=== PATIENT | female | born 1945 | race Two or more races ===

== ENCOUNTER 2024-09-17 20:22 | Inpatient (IN) | payer OTHER ==
[~2024-09-17] VITALS: Ht 157.5 cm; Wt 71.2 kg
[2024-09-17] MEDS ORDERED: LACT1CAP57 PO (20:41)
[2024-09-17] MEDS ORDERED: ASPI81TA31 PO (20:41)
[2024-09-17] MEDS ORDERED: ACET325T53 PO (20:41)
[2024-09-17] MEDS ORDERED: ROSU5TAB PO (20:41)
[2024-09-17] MEDS ORDERED: CALC-494 PO (20:41)
[2024-09-17] MEDS ORDERED: BUSP5TAB3 PO (20:41)
[2024-09-17] MEDS ORDERED: DOCU100C36 PO (20:41)
[2024-09-17] MEDS ORDERED: ASCO500C18 PO (20:41)
[2024-09-17] MEDS ORDERED: FAMO20TA8 PO (20:41)
[2024-09-17] MEDS ORDERED: BUDE10.2 INH (20:41)
[2024-09-17] MEDS ORDERED: CHOL10005 PO (20:41)
[2024-09-17] MEDS ORDERED: TIOT4MIS2 IH (20:41)
[2024-09-17] MEDS ORDERED: ONDA4TAB11 PO (20:41)
[2024-09-17] MEDS ORDERED: BENZ5.1G (20:41)
[2024-09-17] MEDS ORDERED: ALBU8HFA4 PO (20:41)
[2024-09-17] MEDS ORDERED: CITA10TA9 PO (20:41)
[2024-09-17] MEDS ORDERED: NYST15PO4 TP (20:41)
[2024-09-17] MEDS ORDERED: MULT-1045 PO (20:41)
[2024-09-17] MEDS ORDERED: METH1ADH11 TP (20:41)
[2024-09-17] MEDS ORDERED: LORA10TA60 PO (20:41)
[2024-09-17 21:17] LABS: BASOPHILS % (AUTO) 0.6 % (0.0-2.0); EOSINOPHILS # (AUTO) 0.1 K/uL (0.0-0.7); EOSINOPHILS % (AUTO) 1.7 % (0.0-7.0); HEMATOCRIT 32.2 % (31.2-41.9); HEMOGLOBIN 10.7 g/dL (10.9-14.3); LYMPHOCYTES # (AUTO) 1.4 K/uL (0.8-4.8); LYMPHOCYTES % (AUTO) 24.7 % (20.5-51.5); MEAN CORPUSCULAR HEMOGLOBIN 32.2 uug (24.7-32.8); MEAN CORPUSCULAR HGB CONC 33 g/dL (32.3-35.6); MEAN CORPUSCULAR VOLUME 96.6 fL (75.5-95.3); MONOCYTES # (AUTO) 0.5 K/uL (0.1-1.30); NEUTROPHILS # (AUTO) 3.7 K/uL (1.8-8.9); PLATELET COUNT (AUTO) 129 K/uL (179-408); RED BLOOD CELL COUNT(AUTO) 3.33 MIL/uL (3.63-4.92); RED CELL DISTRIBUTION WIDTH 13.6 % (12.3-17.7); WHITE BLOOD COUNT (AUTO) 5.6 K/uL (3.8-11.8)
[2024-09-17 21:23] LABS: DIFFERENTIAL COMMENT 1
[2024-09-17 21:26] LABS: CALCIUM 8.8 mg/dL (8.5-10.1); CARBON DIOXIDE 34 mmol/L (21-32); CHLORIDE 99 mmol/L (98-107); CREATININE 0.7 mg/dL (0.6-1.3); GLUCOSE 106 mg/dL (74-106); POTASSIUM 4.1 mmol/L (3.5-5.1); SODIUM SERUM 138 mmol/L (136-145); UREA NITROGEN, BLOOD 15 mg/dL (7-18)
[2024-09-17 21:42] LABS: ALANINE AMINOTRANSFERASE 13 U/L (14-59); ALBUMIN 3.2 g/dL (3.4-5.0); ALKALINE PHOSPHATASE 55 U/L (50-136); ASPARTATE AMINOTRANSFERASE 10 U/L (15-37); BILIRUBIN,DIRECT 0.1 mg/dL (0.0-0.2); BILIRUBIN,TOTAL 0.3 mg/dL (0.2-1.0); NT-PRO BNP 183 pg/mL (0-125); TOTAL PROTEIN, SERUM 7.3 g/dL (6.4-8.2)
[2024-09-17] MEDS ORDERED: IV NORMAL SALINE 250 ML IV ONE (22:17)
[2024-09-17] MEDS ORDERED: IOHEXOL 350 100 ML INFUS..BTL ONE (22:17)
[2024-09-17] MEDS ORDERED: SWABABLE VALVE TRANSFER SET EA MC ONE (22:17)
[2024-09-18] MEDS ORDERED: ALBUTEROL SULFATE 8 GM HFA.AER.AD IH PRN (01:30)
[2024-09-18] MEDS ORDERED: ONDANSETRON 4 MG/2 ML VIAL IV PRN (01:30)
[2024-09-18] MEDS ORDERED: ACETAMINOPHEN 325 MG TABLET PO PRN (01:30)
[2024-09-18] MEDS ORDERED: MAGNESIUM HYDROXIDE 30 ML LIQUID UDC PO PRN (01:30)
[2024-09-18] MEDS ORDERED: REMEDY ESSENTIAL ZINC PASTE 113 GM TP PRN (01:30)
[2024-09-18] MEDS ORDERED: CALCIUM CARBONATE 500 MG TAB.CHEW PO PRN (01:30)
[2024-09-18] MEDS ORDERED: MULTIVITAMINS,THERAPEUTIC TABLET PO SCH (09:00)
[2024-09-18] MEDS: CITALOPRAM 10 MG TABLET PO SCH (11:28)
[2024-09-18] MEDS: busPIRone 5 MG TABLET PO SCH (11:28)
[2024-09-18] MEDS: FAMOTIDINE 20 MG TABLET PO SCH (11:28)
[2024-09-18] MEDS: ENOXAPARIN SODIUM 40 MG/0.4 ML DISP.SYRIN SQ SCH (11:30)
[2024-09-18] MEDS: ENOXAPARIN SODIUM 80 MG/0.8 ML DISP.SYRIN SQ SCH (11:31)
[2024-09-18 12:00] VITALS: BP 158/63; TEMP 98.1; O2SAT 94
[2024-09-18 13:30] VITALS: O2SAT 96
[2024-09-18] MEDS: DOCUSATE SODIUM 100 MG CAPSULE PO SCH (18:05)
[2024-09-18] MEDS: CHOLECALCIFEROL 1,000 UNIT TABLET PO SCH (18:05)
[2024-09-18] MEDS ORDERED: Medication Not On Formulary EA (Rosuvastatin Calcium (Crestor) 1 TAB) PO SCH (21:00)
[2024-09-18 21:11] VITALS: O2SAT 96
[2024-09-18] MEDS: ATORVASTATIN 10 MG TABLET PO SCH (22:46)
[2024-09-18] MEDS: levoFLOXacin 500 MG TABLET PO SCH (22:51)
[2024-09-19] VITALS (9 sets, daily range): BP systolic 92–161; BP diastolic 41–72; TEMP 98–98.9; O2SAT 96–99
[2024-09-19 07:07] LABS: BASOPHILS % (AUTO) 0.4 % (0.0-2.0); EOSINOPHILS # (AUTO) 0.1 K/uL (0.0-0.7); EOSINOPHILS % (AUTO) 1.9 % (0.0-7.0); HEMATOCRIT 34.2 % (31.2-41.9); HEMOGLOBIN 11.7 g/dL (10.9-14.3); LYMPHOCYTES # (AUTO) 1.5 K/uL (0.8-4.8); LYMPHOCYTES % (AUTO) 25.5 % (20.5-51.5); MEAN CORPUSCULAR HEMOGLOBIN 32.8 uug (24.7-32.8); MEAN CORPUSCULAR HGB CONC 34 g/dL (32.3-35.6); MEAN CORPUSCULAR VOLUME 95.8 fL (75.5-95.3); MONOCYTES # (AUTO) 0.6 K/uL (0.1-1.30); MONOCYTES % (AUTO) 10.3 % (0.0-11.0); NEUTROPHILS # (AUTO) 3.6 K/uL (1.8-8.9); NEUTROPHILS % (AUTO) 61.9 % (38.5-71.5); PLATELET COUNT (AUTO) 134 K/uL (179-408); RED BLOOD CELL COUNT(AUTO) 3.57 MIL/uL (3.63-4.92); RED CELL DISTRIBUTION WIDTH 13.7 % (12.3-17.7); WHITE BLOOD COUNT (AUTO) 5.9 K/uL (3.8-11.8)
[2024-09-19 07:36] LABS: CALCIUM 9.1 mg/dL (8.5-10.1); CARBON DIOXIDE 36 mmol/L (21-32); CHLORIDE 98 mmol/L (98-107); CHOLESTEROL 170 mg/dL (<200); CREATININE 0.8 mg/dL (0.6-1.3); GLUCOSE 95 mg/dL (74-106); HDL CHOLESTEROL 99 mg/dL (40-60); MAGNESIUM 2.1 mg/dL (1.8-2.4); PHOSPHOROUS 3.9 mg/dL (2.5-4.9); POTASSIUM 4.6 mmol/L (3.5-5.1); SODIUM SERUM 138 mmol/L (136-145); TRIGLYCERIDES 35 MG/DL (30-150); UREA NITROGEN, BLOOD 16 mg/dL (7-18)
[2024-09-19 07:38] LABS: DIFFERENTIAL COMMENT 1
[2024-09-19] MEDS: ASPIRIN 81 MG TAB.CHEW PO SCH (09:29)
[2024-09-19] MEDS: ASCORBIC ACID 500 MG TABLET PO SCH (09:29)
[2024-09-19] MEDS: MULTIVITAMINS,THERAPEUTIC TABLET PO SCH (09:29)
[2024-09-19] MEDS: ALBUTEROL SULFATE 2.5 MG/ 0.5 ML NEBU NEB PRN (13:37)
[2024-09-19] MEDS ORDERED: MISCELLANEOUS MED XX PRN ×2 (15:00)
[2024-09-19] MEDS: IV NORMAL SALINE 250 ML IV ONE (22:03)
[2024-09-20] MEDS ORDERED: FLUTICASONE/VILANTEROL 1 EACH BLST.W.DEV INH SCH (09:00)
== END 2024-09-19 23:40 | disposition short-term general hospital (02) | DRG 190 ==
LOC: ER 20:22 → TRANSITION 09-18 07:18 → TELE3 09-18 08:47
PROVIDERS: ADMIT Nurse Practitioner Acute Care; ATTEND Nurse Practitioner Acute Care
DX: J44.1 Chronic obstructive pulmonary disease with (acute) exacerbation (principal); I21.A1 Myocardial infarction type 2; D68.59 Other primary thrombophilia; E44.1 Mild protein-calorie malnutrition; J96.10 Chronic respiratory failure, unspecified whether with hypoxia or hypercapnia; I50.30 Unspecified diastolic (congestive) heart failure; J98.4 Other disorders of lung; Z99.81 Dependence on supplemental oxygen; Z87.891 Personal history of nicotine dependence; E88.09 Other disorders of plasma-protein metabolism, not elsewhere classified; E66.9 Obesity, unspecified; I11.0 Hypertensive heart disease with heart failure; I25.10 Atherosclerotic heart disease of native coronary artery without angina pectoris; Z79.51 Long term (current) use of inhaled steroids; Z88.0 Allergy status to penicillin; Z79.82 Long term (current) use of aspirin; E78.5 Hyperlipidemia, unspecified; K21.9 Gastro-esophageal reflux disease without esophagitis
CPT/HCPCS: 36415; 71045; 71275; 83735; 84100; 84484; 85025; 85730; 93307; 94640; 94664; A4606; A4663; G0378; J1650; J7040; Q9967